=== PATIENT | female | born 1945 | race Asian ===

== ENCOUNTER 2019-07-11 12:12 | Emergency (ER) | payer OTHER ==
[~2019-07-11] VITALS: Ht 157.5 cm; Wt 56.2 kg
[2019-07-11 12:19] VITALS: BP 145/51; Ht 157.5 cm; Wt 56.2 kg
== END 2019-07-11 14:38 | disposition home or self-care (01) ==
LOC: ED 12:12
DX: H61.21 Impacted cerumen, right ear (principal); I10 Essential (primary) hypertension; E11.9 Type 2 diabetes mellitus without complications; E78.00 Pure hypercholesterolemia, unspecified; Z88.1 Allergy status to other antibiotic agents